=== PATIENT | male | born 1945 | race Caucasian/White ===

== ENCOUNTER 2023-09-21 08:39 | Emergency (ER) | payer OTHER ==
[~2023-09-21] VITALS: Ht 182.9 cm; Wt 100.0 kg
[2023-09-21] MEDS: MORPHINE SULFATE 4 MG/ML SYR/VIAL ONE (09:12)
[2023-09-21] MEDS: ONDANSETRON HCL 4 MG/2 ML VIAL ONE (09:12)
[2023-09-21] MEDS: MORPHINE SULFATE 4 MG/ML SYR/VIAL IV ONE (09:13)
[2023-09-21] MEDS: ONDANSETRON HCL 4 MG/2 ML VIAL IV ONE (09:14)
[2023-09-21 09:18] VITALS: PULSE 92; RESP 30; TEMP 98.3; O2SAT 98
[2023-09-21] MEDS: ETOMIDATE (2MG/ML) 20ML VIAL IV ONE (09:55)
[2023-09-21] MEDS ORDERED: HYDR-4902 PO (10:09)
[2023-09-21 11:18] VITALS: BP 147/73; PULSE 79; RESP 18; O2SAT 99
== END 2023-09-21 11:30 | disposition home or self-care (01) ==
LOC: ER 08:39 → EDBD 08:39 → ER 11:30
DX: S43.085A Other dislocation of left shoulder joint, initial encounter (principal); F15.90 Other stimulant use, unspecified, uncomplicated; Z79.899 Other long term (current) drug therapy; W01.0XXA Fall on same level from slipping, tripping and stumbling without subsequent striking against object, initial encounter; Y93.89 Activity, other specified; Y92.512 Supermarket, store or market as the place of occurrence of the external cause; Y99.8 Other external cause status
CPT/HCPCS: 23650; 73020; 73030; 96374; 96375; 99285; J2270; J2405